=== PATIENT | female | born 1965 | race American Indian/Alaskan Native ===

== ENCOUNTER 2016-03-31 22:33 | Inpatient (IN) | payer OTHER ==
[2016-04-01] MEDS ORDERED: ONDANSETRON DISINTEGRATING 4 MG TAB PO PRN (00:54)
[2016-04-01] MEDS: NS 1,000 ML IV SCH ×2 (01:14→20:53)
[2016-04-01] MEDS: ACETAMINOPHEN 500 MG TAB PO PRN ×2 (01:15→09:16)
[2016-04-01] MEDS ORDERED: POLYETHYLENE GLYCOL 3350 17 GM PKT PO PRN ×2 (01:49→09:40)
--- NOTE | 2016-04-01 02:41 | PDGENHP ---
History and Physical - Chief Complaint Abdominal pain - History of Present Illness Patient is a 50-year-old female with no significant medical history who presented to the [place] ED complaining generalized malaise and chills. About 7 weeks ago patient underwent vaginal hysterectomy for removal of fibroid uterus. About 2 weeks after surgery patient had developed abdominal pain, came to [facility] ED was discovered to have postop hematoma formation. This was managed conservatively, patient's symptoms were treated she was discharged home. She reports that since that time she has been having continued bloody vaginal drainage, lower abdominal cramping and constipation/ straining with defecation. About 2 or 3 days ago she also noticed increase in urinary frequency, intermittently with symptoms of dysuria. On day of presentation she reports significant generalized fatigue and also rigors, which prompted her to go to the [facility] ED. [place] ED vital signs: T 38.6 C, HR 114, BP 169/104, O2 sat 93% RA. Labs were revealed no leukocytosis, elevated platelets and normal BMP. Lactic acid was elevated 2.8. UA revealed moderate leuk Estrace positive nitrites and 61-100 WBCs. Rapid Flu swab negative. Chest x-ray negative for any acute infiltrate. CT abdomen and pelvis was then obtained and revealed 6 x 5 x 3 cm fluid collection in the pelvic region adjacent to the bladder, bladder wall thickening and surrounding stranding. Blood and urine cultures were sent and she was started on broad-spectrum antibiotics. Dr. Joseph, the surgeon who performed her hysterectomy was called by the ED physician. Patient and Dr. Joseph both agreed transfer to the [facility] would be most appropriate given all of her prior care here. Patient was then transported to [facility] and admitted under the hospitalist service. ED Meds: NS x 2L, Tramadol 50 mg, Zosyn 3.375 g. History Information - Allergies/Home Medication List Allergies/Adverse Reactions: morphine Allergy (Intermediate, Verified 03/05/16 08:15) Itching Home Medications: Acetaminophen [Tylenol ES 500 mg (*)] 1,000 mg PO 0700,1300 02/19/16 [Last Taken 02/20/16 23:00] I have personally reviewed and updated: family history, medical history, social history, surgical history - Past Medical History Additional medical history: None - Surgical History Additional surgical history: multiple knee surgeries. ankle surgery x 1. 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 She lives with her in [place]. Review of Systems ROS: 10pt was reviewed & negative except for what was stated in HPI & below Physical Exam Temp Pulse Resp BP Pulse Ox 36.6 C 90 16 130/85 H 95 04/01/16 00:33 04/01/16 00:33 04/01/16 00:33 04/01/16 00:33 04/01/16 00:33 Constitutional: no apparent distress, appears nourished, not in pain Eyes: PERRL, anicteric sclera, EOMI Ears, Nose, Mouth, Throat: moist mucous membranes, hearing normal, ears appear normal, no oral mucosal ulcers Cardiovascular: regular rate and rhythym, no murmur, rub, or gallop, pulses symmetric bilaterally, No JVD, No edema Peripheral Pulses: 2+: dorsalis-pedis (R), dorsalis-pedis (L) Respiratory: no respiratory distress, no rales or rhonchi, clear to auscultation Gastrointestinal: normoactive bowel sounds, other (Suprapubic tenderness, fullness in the suprapubic area), No guarding, No rebound Genitourinary: other (Bladder tenderness) Skin: warm, normal color, no rashes or abrasions, no fluctuance, no induration, No mottled Musculoskeletal: full muscle strength, no muscle tenderness, normal joint ROM, no joint effusions Neurologic: AAOx3, sensation intact bilaterally, CN II-XII Intact, No weakness, No numbness Psychiatric: interacting appropriately, not anxious, not encephalopathic, thought process linear Lab Data & Imaging Review BMP: 140 / 3.6 / 105 / 21 / 11 / 0.86 < 94, Ca 8.7 CBC: 4.2 > 10.6 / 32.8 < 730 Lactic acid: 2.8 Urinalysis: moderate leukocyte esterase, positive nitrites, 61-200 WBC, 6-10 RBCs Rapid influenza A/B swab: negative Visualized and Interpreted Chest x-ray results: Yes Chest X-Ray results: no infiltrate, normal Visualized and Interpreted imaging results: Yes Interpretation: CT abd/pelvis: significant amount of stool throughout GI tract; pelvic fluid collection: [id number] in size, adjacent to bladder Assessment & Plan Assessment: Patient is a 50-year-old female with a history of recent vaginal hysterectomy, which has been complicated by abdominal hematoma formation, presents to the ED with increasing abdominal pain, fever and generalized fatigue. ED w/u reveals persistent pelvic hematoma, as well as UTI. Plan: # sepsis Pt with fever, tachycardia on presentation to [facility] ED, meeting SIRS criteria. Source of infection include urine (grossly positive UA) and possible pelvic abscess given persistent pelvic hematoma. BLood and urine cultures were sent in ED prior to initiating antibiotics, and she was started on broad spectrum coverage. Elevated lactic acid indicates severe sepsis, pt received appropriate 30cc/kg fluid bolus, and remained hemodynamically stable throughout her course. - f/u blood and urine cultures (from micro lab) - cont zosyn 3.375 g q6h for now, narrow as indicated by cultures - repeat Lactic acid - monitor cbc and fever curve # pelvic fluid collection First identified on 03/05, conservatively managed. Repeat CT abd/pelvis should be compared to prior to assess size and features of fluid. Will defer to PL[facility] S[facility]TER regarding need for surgical investigation. # constipation Pt reports constipation symptoms x [address] shows significant stool throughout colon. Will start standing bowel regimen and monitor. Pt denies nausea, vomiting and is tolerating PO intake. - senna/colace BID - miralax prn # dispo: admit to inpt service for > 2MN stay # gen: regular diet DVT ppx: SCDs Full code
[2016-04-01] MEDS: SENNOSIDES/DOCUSATE SODIUM TAB PO SCH ×3 (03:01→20:52)
[2016-04-01] MEDS: traMADol 50 MG TAB PO PRN ×4 (03:35→23:41)
[2016-04-01 05:43] LABS: % IMMATURE GRANULYOCYTES 0.7 % (0.0-1.1); ABSOLUTE IMMATURE GRANULOCYTES 0.08 10^3/uL (0.00-0.10); ADD DIFF? NO; ADD MORPH? NO; ADD SCAN? NO; ATYPICAL LYMPHOCYTE FLAG 10 (0-99); FRAGMENT RBC FLAG 0 (0-99); HEMATOCRIT 24.4 % (38.0-47.0); HEMOGLOBIN 8.1 g/dL (12.6-16.3); LEFT SHIFT FLG 50 (0-99); LIPEMIA HEMOLYSIS FLAG 80 (0-99); MEAN CELL HEMOGLOBIN 30.5 pg (27.9-34.1); MEAN CELL HEMOGLOBIN CONCENTR. 33.2 g/dL (32.4-36.7); MEAN CELL VOLUME 91.7 fL (81.5-99.8); MEAN PLATELET VOLUME 7.8 fL (8.7-11.7); PLATELET CLUMPS FLAG 0 (0-99); PLATELET COUNT 582 10^3/uL (150-400); RED BLOOD CELL COUNT 2.66 10^6/uL (4.18-5.33); RED CELL DISTRIBUTION WIDTH 13.5 % (11.5-15.2)
[2016-04-01 05:44] LABS: ALANINE AMINOTRANSFERASE 51 IU/L (9-52); ALBUMIN 2.7 g/dL (3.5-5.0); ALKALINE PHOSPHATASE 177 IU/L (38-126); ANION GAP 11 mEq/L (8-16); ASPARTATE AMINOTRANSFERASE 47 IU/L (14-46); BILIRUBIN,TOTAL 0.3 mg/dL (0.1-1.4); CALCIUM 7.9 mg/dL (8.5-10.4); CARBON DIOXIDE 23 mEq/l (22-31); CHLORIDE 110 mEq/L (97-110); CREATININE 0.6 mg/dL (0.6-1.0); GLOMERULAR FILTRATION RATE > 60; GLUCOSE 87 mg/dL (70-100); INR 1.13 (0.83-1.16); MAGNESIUM 1.8 mg/dL (1.6-2.3); POTASSIUM 4.1 mEq/L (3.5-5.2); PROTIME(PATIENT) 14.4 SEC (12.0-15.0); SODIUM 144 mEq/L (134-144); TOTAL PROTEIN 5.8 g/dL (6.3-8.2)
[2016-04-01 05:45] LABS: APTT 35.1 SEC (23.0-38.0)
[2016-04-01] MEDS: PIPERACILLIN/TAZO 3.375 GM/DEX 50 ML IV SCH ×4 (06:13→23:42)
[2016-04-01 09:37] LABS: % IMMATURE GRANULYOCYTES 0.7 % (0.0-1.1); ABSOLUTE IMMATURE GRANULOCYTES 0.07 10^3/uL (0.00-0.10); ADD DIFF? NO; ADD MORPH? NO; ADD SCAN? NO; ATYPICAL LYMPHOCYTE FLAG 10 (0-99); FRAGMENT RBC FLAG 0 (0-99); HEMATOCRIT 24.7 % (38.0-47.0); HEMOGLOBIN 8.3 g/dL (12.6-16.3); LEFT SHIFT FLG 20 (0-99); LIPEMIA HEMOLYSIS FLAG 80 (0-99); MEAN CELL HEMOGLOBIN 31.1 pg (27.9-34.1); MEAN CELL HEMOGLOBIN CONCENTR. 33.6 g/dL (32.4-36.7); MEAN CELL VOLUME 92.5 fL (81.5-99.8); MEAN PLATELET VOLUME 7.7 fL (8.7-11.7); PLATELET CLUMPS FLAG 0 (0-99); PLATELET COUNT 515 10^3/uL (150-400); RED BLOOD CELL COUNT 2.67 10^6/uL (4.18-5.33); RED CELL DISTRIBUTION WIDTH 13.6 % (11.5-15.2)
[2016-04-01] MEDS ORDERED: MAGNESIUM HYDROXIDE 30 ML UDCUP PO PRN (09:40)
[2016-04-01] MEDS ORDERED: HYDROmorphONE/DILAUDID 1 MG/ML SYR IVP PRN (09:40)
[2016-04-01] MEDS ORDERED: BISACODYL 10 MG SUPP PR PRN (09:40)
[2016-04-01] MEDS ORDERED: LACTULOSE 20 GM/30 ML UDCUP PO PRN (09:40)
--- NOTE | 2016-04-01 12:49 | GCON ---
[f rep st] CONSULTATION GYNECOLOGIC CONSULTATION DATE OF CONSULTATION: 04/01/2016 CHIEF COMPLAINT: Pelvic pressure and overall general malaise. HISTORY OF PRESENT ILLNESS: Patient is a 50-year-old G2, P2, who underwent uncomplicated vaginal hysterectomy on 02/21/2016. Her postop course was uneventful except for a small reaction to morphine from her spinal morphine. She then presented to the emergency room on 03/05/2016 with pelvic pressure, and CT scan showed a 6 cm vaginal cuff hematoma. Her pain was mild, and her blood count was stable, so she was felt to safely be managed expectantly, with the understanding that most of these resorb without complication. Patient was then seen in my office two other times. The pelvic cuff hematoma was felt to be stable on exam, and patient was feeling well until 3-4 days before presenting to [place] emergency room with pain, fever, chills, bladder pressure and overall feeling pretty sick. Evaluation included blood work that showed a white blood count of 4 and a hematocrit of 32. CT scan that showed persistent pelvic hematoma. Her vital signs showed a temp of 38.2, and she was tachycardic at 114, and blood pressure was very elevated at 170/104, and she had an elevated lactic acid. Patient was felt to be septic either from vaginal cuff hematoma or from other sources such as a urinary tract infection, and because she was postop, patient was transferred to [facility]. She was started on antibiotics at the [facility] and had blood cultures and urine cultures, antibiotics with Zosyn 3.375 g q.6 hours. Patient was admitted under hospitalist care. Today, states that she is feeling better but still has significant malaise. Pain is resolving quickly. She does not have much vaginal drainage, and is ambulating well. EXAM: VITAL SIGNS: Blood pressure is 120-130/80, pulse is 90, and temperature is 36.4. LUNGS: Clear to auscultation. COR: Regular rate and rhythm. ABDOMEN: Soft with positive bowel sounds, and above the pubic symphysis is a palpable firm mass that is slightly tender, it is not significantly fluctuant. PELVIC: Exam deferred, but scant discharge of the perineum. LABORATORY: White blood count this morning was 12 and now is 10, and hematocrit was 24. Pending at this point is comparison of previous CT scan from 03/05/2016 to 03/31/2016 at [facility], to evaluate if there is any change in size of the mass or any other changes. ASSESSMENT AND PLAN: Likely some form of sepsis with etiologies including vaginal cuff hematoma abscess most likely cause. She seems to be responding well to the antibiotics in that she is afebrile and her white count with repeat is normalizing at 10, and she is feeling slightly better. Plan at this point is awaiting radiology comparison and options for drainage. Recommend at this point that we give her 48 hours of being afebrile before attempting to drain this abscess, and this can either be done under ultrasound guidance in the operating room with Radiology or if Radiology feels they can drain it through ultrasound guidance themselves either abdominally or through the vagina. So plan for now is that patient can eat, and will get SCDs on her legs, and she has a tentative OR time at 9:15. Also ID consult will be done and also will check the blood cultures from [facility]. /[id number]/MODL MTDD
[2016-04-01] MEDS: ONDANSETRON 4 MG/2 ML VIAL IVP PRN ×2 (14:32→20:52)
--- NOTE | 2016-04-01 15:34 | GCON ---
[f rep st] CONSULTATION INFECTIOUS DISEASE CONSULTATION. DATE OF CONSULTATION: 04/01/2016 REFERRING PHYSICIAN: Cristina Bowser MD REASON FOR CONSULTATION: Pelvic abscess, for further evaluation and opinion. CHIEF COMPLAINT: Lower abdominal pain. HISTORY OF PRESENTING ILLNESS: This is a 50-year-old female with a history of fibroids, who underwent a vaginal hysterectomy on February 21, 2016. She stayed 1-1/2 days in the hospital. During that time, she had a bad reaction to morphine, where her blood pressure dropped, and it took, according to the patient, around 20 hours to resuscitate or improve her blood pressure. About 2 weeks after surgery, she started to have increasing abdominal pain. Came to the [facility] ED and had a CT scan at that time. She was found to have a postop hematoma. She has been followed by Dr. 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 She has been on no antibiotics during this time. She has had intermittent increases in her abdominal pain. She has also had bloody vaginal discharge. Also, about 5 weeks ago, at the time when she had intense abdominal pain, she was having pretty profuse diarrhea as well. Over the past couple days, she has had some increasing pressure in the lower abdomen suprapubic region. She describes some intermittent dysuria, but yesterday, she spiked to 38.6, was having shaking chills, and her blood pressure at [place] was noted to be at 169/104 with a heart rate of 114. She had blood cultures x2 sets drawn. She had a venous lactic acid which was elevated at 2.8. She showed pyuria in her urine. She had a followup CAT scan which showed a 6 x 5 x 3 cm fluid collection in the pelvic region adjacent to the bladder, which looked suspicious for an abscess. She was transferred here to [facility] for ongoing care. She was started on Zosyn yesterday. Today, she is feeling a little bit better. She continues to have lower abdominal pain. Her temperatures have improved. Her heart rate has also improved. Her blood pressure also has improved as well. Her white blood cell count was 12 when she had blood drawn here earlier this morning. It is down to 10.3 now. She has a thrombocytosis and a left shift. Infectious Disease is now consulted for further evaluation and opinion on above. REVIEW OF SYSTEMS: GENERAL: She has had fevers and shaking chills over the past 24 hours. This is improved somewhat now. HEAD: Has a mild headache. EYES: No change in vision. ENT: No sore throat, difficulty swallowing, ear pain, or ear drainage. CARDIOVASCULAR: Denies any chest pain or rapid heartbeat. RESPIRATORY: Denies any shortness of breath, cough, or sputum production. ABDOMEN. Mild nausea. No vomiting. Lower abdominal pain. No diarrhea. : Intermittent dysuria, but she states she voids frequently as well ever since the hematoma was found, over the past 5 weeks. MUSCULOSKELETAL : Denies any joint pains or muscle aches. SKIN: No other rashes. Rest of the 10-point review of systems essentially negative except for above. PAST MEDICAL HISTORY: Fibroids. PAST SURGICAL HISTORY: Vaginal hysterectomy on 02/21/2016, right ankle surgery , multiple left knee surgeries for ACL repair. ALLERGIES: Morphine. SOCIAL HISTORY: She is a nonsmoker. She drinks alcohol occasionally. No illicit drugs. She used marijuana occasionally. She works in [employer] at [place] and, thus, travels abroad frequently for that. She lives with her in [place]. She has 2 grown children. FAMILY HISTORY: Significant for high blood pressure and diabetes. PHYSICAL EXAMINATION: VITAL SIGNS: Temperature current 36.7, pulse is 84, blood pressure of 129/83, heart rate is 84. GENERAL: Patient is sitting up in bed, in no acute respiratory distress. Awake, alert, and oriented x3. HEENT: Head is normocephalic, atraumatic. There is no conjunctival injection or petechiae noted. Oropharynx is clear. There is no posterior pharyngeal erythema or thrush. CARDIOVASCULAR: S1, S2. Regular rate and rhythm. No murmurs appreciated. RESPIRATORY: Clear to auscultate bilaterally. No rhonchi or rales appreciated. ABDOMEN: Positive bowel sounds in all 4 quadrants. Soft, nondistended. She has some pain in the suprapubic and lower pelvic region on palpation with some induration appreciated. EXTREMITIES: No lower extremity edema. MUSCULOSKELETAL: No obvious joint effusions or pain on palpation of the joints. SKIN: No obvious rashes. LABS: White blood cell count is 10.3, hemoglobin 8.3, platelets are 515. neutrophil count is 83%. Coagulation: INR 1.1. Venous lactic acid repeat is 0.6. Chemistries: Sodium 144, potassium 4.1, chloride is 110, bicarb is 23, BUN is 8, creatinine 0.6, AST 47, ALT 51, total bilirubin 0.3, alk phos is 177. Blood cultures, 2 sets done at [place], are pending. Urine culture pending. ASSESSMENT: 1. Postop fluid collection/hematoma, likely abscess versus infected hematoma. 1. Urinary tract infection PLAN: Patient is currently on broad-spectrum antimicrobials with Zosyn which we will continue for now. Await culture results that were done at [facility]. Would recommend that she have an aspiration by Interventional Radiology from a diagnostic standpoint to evaluate further for cultures as well as for partial therapeutic response as well. She may eventually have to go for a formal washout. The above was explained to the patient in detail. The rationale and importance for early diagnosis was explained. The order is already placed for Interventional Radiology to aspirate the abscess and will await that procedure to be done. Await culture data from that procedure to help tailor down her antimicrobials, as she is currently on a broad-spectrum antimicrobial every 6 hours. Thus, culture data will be helpful in further management. Care was coordinated with the hospitalist team. Patient and the patient's family had many questions which I answered satisfactorily and in detail. I reviewed her CT abdomen/pelvis images done at [facility] personally with radiology, Dr. Barrett. I thank you very much for allowing me this opportunity to care for your patient in consultation. /[id number]/MODL MTDD
--- NOTE | 2016-04-01 15:40 | HOSPPROG ---
Hospitalist Progress Note Assessment/Plan: * Sepsis - suspect infected pelvic hematoma -cultures sent at [facility] prior to abx and transfer to [facility] -IV Zosyn -ID consulted - d/w Dr. Bryson -pelvic hematoma needs drainage - IR vs. surgical with Dr. Joseph * s/p vaginal hysterectomy for fibroids * Possible UTI - urine culture pending * ABL anemia - stable * Constipation - bowel protocol Subjective: Lots of pain at hematoma. Frustrated and tearful Objective: Vital Signs Temp Pulse Resp BP Pulse Ox 36.7 C 84 16 129/83 H 95 04/01/16 12:00 04/01/16 12:00 04/01/16 12:00 04/01/16 12:00 04/01/16 12:00 Laboratory Results 04/01/16 09:30 04/01/16 05:09 03/31/16 04/01/16 04/02/16 05:59 05:59 05:59 Intake Total 500 Output Total 120 Balance 500 -120 PT 14.4 SEC (12.0-15.0) 04/01/16 05:09 INR 1.13 (0.83-1.16) 04/01/16 05:09 - Physical Exam Constitutional: no apparent distress, appears nourished, not in pain Cardiovascular: regular rate and rhythym, no murmur, rub, or gallop Respiratory: no respiratory distress, no rales or rhonchi, clear to auscultation Gastrointestinal: normoactive bowel sounds, soft, non-tender abdomen, other ( palpable hematoma at midline pelvis) Skin: no rashes or abrasions, no fluctuance, no induration Neurologic: AAOx3, sensation intact bilaterally Psychiatric: interacting appropriately, not anxious, not encephalopathic, thought process linear ICD10 Worksheet Patient Problems: Problems Problem Status Diagnosed Intramural leiomyoma of uterus Acute Other chronic pain Acute
[2016-04-01] MEDS: ACETAMINOPHEN 500 MG TAB PO SCH (20:52)
[2016-04-02 05:47] LABS: % IMMATURE GRANULYOCYTES 0.6 % (0.0-1.1); ABSOLUTE IMMATURE GRANULOCYTES 0.05 10^3/uL (0.00-0.10); ADD DIFF? NO; ADD MORPH? NO; ADD SCAN? NO; ANION GAP 8 mEq/L (8-16); ATYPICAL LYMPHOCYTE FLAG 20 (0-99); CARBON DIOXIDE 26 mEq/l (22-31); CHLORIDE 108 mEq/L (97-110); CREATININE 0.6 mg/dL (0.6-1.0); FRAGMENT RBC FLAG 0 (0-99); GLOMERULAR FILTRATION RATE > 60; GLUCOSE 81 mg/dL (70-100); HEMATOCRIT 25.2 % (38.0-47.0); LEFT SHIFT FLG 40 (0-99); LIPEMIA HEMOLYSIS FLAG 80 (0-99); MEAN CELL HEMOGLOBIN 30.4 pg (27.9-34.1); MEAN CELL HEMOGLOBIN CONCENTR. 31.7 g/dL (32.4-36.7); MEAN CELL VOLUME 95.8 fL (81.5-99.8); MEAN PLATELET VOLUME 7.9 fL (8.7-11.7); PLATELET CLUMPS FLAG 0 (0-99); PLATELET COUNT 540 10^3/uL (150-400); RED BLOOD CELL COUNT 2.63 10^6/uL (4.18-5.33); RED CELL DISTRIBUTION WIDTH 13.7 % (11.5-15.2); SODIUM 142 mEq/L (134-144)
[2016-04-02 05:50] LABS: INR 1.07 (0.83-1.16); PROTIME(PATIENT) 13.8 SEC (12.0-15.0)
[2016-04-02] MEDS: PIPERACILLIN/TAZO 3.375 GM/DEX 50 ML IV SCH ×4 (06:09→23:29)
[2016-04-02] MEDS: ONDANSETRON 4 MG/2 ML VIAL IVP PRN ×2 (06:09→10:08)
[2016-04-02] MEDS: NS 1,000 ML IV SCH ×2 (06:10→17:27)
[2016-04-02] MEDS: traMADol 50 MG TAB PO PRN (07:21)
--- NOTE | 2016-04-02 08:08 | CT ---
Outside Radiology consultation dated April 01, 2016 The below reported case was submitted to PACS by Dr. Ching Joseph. Dr. Joseph requested this stud y from [facility] to be compared to the CT [facility] Indication: Elevated white blood cell count. Suspected infection. Previous hysterectomy. Technique: 5 mm thick slices were obtained through the abdomen pelvis. The volume and type of intrave nous contrast utilized is not available for this reporting. Comparison: CT of the abdomen and pelvis [facility] dated March 05, 2016. Findings: The hematoma along the anterior dome of the urinary bladder (between the rectus muscle and dome bladder) has undergone liquefication. The 6.5 x 2.1 cm rim-enhancing fluid collection is best de monstrated are image 72 of series 2. Regional edema and mesenteric stranding in the low abdomen and p natalee is similar to March 05. The majority of the fluid collection in the central pelvis, at the apex the vaginal cuff, has resolve d. A 1.3 x 1.7 cm locule in the right hemipelvis along the sigmoid contiguous with the right ovary is evident on image 64 of series 2. Presacral edema and stranding is unchanged. The sigmoid colon and loops of small bowel in the pelvis have mild wall thickening. Small and large bowel are otherwise normal caliber. No evidence of obstruc tion or adynamic ileus. The appendix is within normal limit and partially obscured by regional strand ing. Both ovaries are minimally enlarged and similar to March 05. The urinary bladder is normal with the exception of reactive thickening along the anterior dome contiguous with the fluid collection. The liver, spleen, pancreas, gallbladder, and adrenal glands are normal. Minimal left hydroureteronep hrosis is new since 3 weeks prior and is likely secondary to inflammation in the pelvis. No nephrolit hiasis or ureteral calculi. No CT evidence of pyelonephritis or perinephric fluid collection. A right posterolateral disk herniation (protrusion on the right at L2-L3) resulting in moderate cente r canal and right ventrolateral recess narrowing is slightly more conspicuous than on the prior study . No bone lesion or paraspinal abscess. The lung bases are clear. Impression: 1. Evolving seroma versus superinfected seroma anterior to the urinary bladder with associated region al inflammation in the pelvis. If desired, the collection would be amenable to CT-guided aspiration v ersus drain placement. 2. Resolved complex fluid collection previously the apex of the vaginal cuff. 3. 1.7 cm locule in the right hemipelvis is likely ovarian follicle rather than residual fluid collec tion. 4. Regional pelvic inflammation results in minimal left hydronephrosis and inflammatory wall thickeni ng of the rectosigmoid, loops of ileum, and anterior bladder wall. Comment: The case was discussed with Dr. Ching Joseph on April 01, 2016.
[2016-04-02] MEDS: CETIRIZINE 10 MG TAB PO SCH (08:46)
[2016-04-02] MEDS: ACETAMINOPHEN 500 MG TAB PO SCH ×2 (08:46→20:42)
[2016-04-02] MEDS: SENNOSIDES/DOCUSATE SODIUM TAB PO SCH ×2 (08:48→20:42)
--- NOTE | 2016-04-02 09:26 | PCMIDPN ---
Assessment/Plan: Assessment/Plan: 1. Post op pelvic hematoma- infected hematoma vs abscess: - Reviewed Ct images with radiology last evening. Definite change in character compared to previous Ct done here several weeks ago. -For IR aspiratoin later today, for diagnostic and culture data -Continue zosyn for now -blood cx from [facility] ngtd -overall labs improved. 2. E. coli UTI: - Awaiting susceptibilities. Cx results from [facility] via [facility]. MEds zosyn 3.375gm q6- Subjective: Afebrile. FEeling much better today. Less overall abdominal pain, suprapubic pain and dysuria. no diarrhea. no shortness of breath. Objective: Vital Signs Temp Pulse Resp BP Pulse Ox 36.8 C 74 18 137/97 H 94 04/02/16 07:50 04/02/16 07:50 04/02/16 07:50 04/02/16 07:50 04/02/16 07:50 Laboratory Results 04/02/16 05:00 04/02/16 05:00 04/01/16 04/02/16 04/03/16 05:59 05:59 05:59 Intake Total 500 1700 Output Total 120 Balance 500 1580 - Physical Exam General Appearance: alert, no apparent distress Respiratory: lungs clear Cardiac/Chest: regular rate, rhythm, No systolic murmur Extremities: No swelling Abdomen: normal bowel sounds, soft, other (tenderness in suprapubic region. ), No distended Skin: No erythema ICD10 Worksheet Patient Problems: Problems Problem Status Diagnosed Intramural leiomyoma of uterus Acute Other chronic pain Acute
[2016-04-02] MEDS ORDERED: PROMETHAZINE HCL 25 MG/ML VIAL IVP PRN (10:49)
[2016-04-02] MEDS ORDERED: MIDAZOLAM 2 MG/2 ML VIAL ONE (11:40)
[2016-04-02] MEDS ORDERED: fentaNYL 100 MCG/2 ML INJ ONE (11:41)
--- NOTE | 2016-04-02 13:17 | HOSPPROG ---
Hospitalist Progress Note Assessment/Plan: * Sepsis - suspect infected pelvic seroma -cultures sent at [facility] prior to abx and transfer to [facility] -IV Zosyn -drainage in IR today * s/p vaginal hysterectomy for fibroids * Possible UTI - urine culture pending * ABL anemia - stable * Constipation - bowel protocol Subjective: no new complaints Objective: Vital Signs Temp Pulse Resp BP Pulse Ox 36.8 C 74 18 137/97 H 94 04/02/16 07:50 04/02/16 07:50 04/02/16 07:50 04/02/16 07:50 04/02/16 07:50 Laboratory Results 04/02/16 05:00 04/02/16 05:00 04/01/16 04/02/16 04/03/16 05:59 05:59 05:59 Intake Total 500 1700 Output Total 120 Balance 500 1580 PT 13.8 SEC (12.0-15.0) 04/02/16 05:00 INR 1.07 (0.83-1.16) 04/02/16 05:00 - Physical Exam Constitutional: no apparent distress, appears nourished, not in pain Cardiovascular: regular rate and rhythym, no murmur, rub, or gallop Respiratory: no respiratory distress, no rales or rhonchi, clear to auscultation Gastrointestinal: normoactive bowel sounds, soft, non-tender abdomen, no palpable masses Skin: no rashes or abrasions, no fluctuance, no induration Neurologic: AAOx3, sensation intact bilaterally Psychiatric: interacting appropriately, not anxious, not encephalopathic, thought process linear ICD10 Worksheet Patient Problems: Problems Problem Status Diagnosed Intramural leiomyoma of uterus Acute Other chronic pain Acute
--- NOTE | 2016-04-02 14:52 | CT ---
CT-Guided Abscess Drainage 1227 hours History: Possible pelvic abscess. Crosscutting Measure #226: Current tobacco user: no. Technique: Witnessed Consent: Witnessed informed consent was obtained after the risks, benefits, and alternativ es of CT-guided abscess drainage were explained to the patient and all questions were answered. The abscess within the anterior pelvis adjacent to the bladder was localized with CT imaging. Conscio us sedation was utilized with a total of 1.5 mg of Versed and 75 mcg of fentanyl over 30 minutes (123 5-1305 hours). Following local anesthesia with 1% lidocaine, a 18-gauge Chiba needle was advanced wit h CT guidance to the abscess within the anterior pelvis. Following confirmation of good position of t he needle tip within the collection, an Amplatz stiff wire was advanced through the needle and curled within the abscess cavity. Following confirmation of good position of the wire, the needle was excha nged for an 8-Sami drainage catheter that was then advanced into the abscess cavity. The pigtail po rtion of the catheter was then formed and locked in place. A total of 20 mL of yellowish cloudy purul ent foul-smelling fluid was aspirated from the collection. The collection was then irrigated with sma ll aliquots of normal saline until clear. The catheter was then fixed to the skin surface. The patien t tolerated the procedure well. No immediate complications occurred. Dose reduction techniques were u tilized. On images obtained the collection originally measured 6.9 x 2.4 cm in transverse and AP dimensions. O nly a small amount of residual fluid remained following aspiration and irrigation of the cavity. Impression: Successful CT-guided abscess drainage and fluid submitted to the laboratory for Gram stai n along with culture and sensitivity.
[2016-04-02] MEDS: KETOROLAC 15 MG/1 ML SDV IVP SCH ×2 (15:17→20:41)
[2016-04-03] MEDS: KETOROLAC 15 MG/1 ML SDV IVP SCH ×4 (03:57→21:07)
[2016-04-03] MEDS: PIPERACILLIN/TAZO 3.375 GM/DEX 50 ML IV SCH ×4 (05:11→23:34)
[2016-04-03] MEDS: ACETAMINOPHEN 500 MG TAB PO SCH (09:11)
[2016-04-03] MEDS: CETIRIZINE 10 MG TAB PO SCH (09:12)
[2016-04-03] MEDS: SENNOSIDES/DOCUSATE SODIUM TAB PO SCH ×2 (09:12→19:10)
[2016-04-03] MEDS ORDERED: ACETAMINOPHEN 500 MG TAB PO PRN (09:29)
--- NOTE | 2016-04-03 14:52 | HOSPPROG ---
Hospitalist Progress Note Assessment/Plan: * Sepsis - due to pelvic abscess s/p vaginal hysterectomy -BC sent at [facility] prior to transfer -IV Zosyn * Pelvic abscess s/p CT guided drainage -still large amount output from MELINA -culture - GNR * s/p vaginal hysterectomy for fibroids * Possible UTI - urine culture pending ([facility]) * ABL anemia - stable * Constipation - bowel protocol Subjective: Feels so much better since drainage procedure Objective: Vital Signs Temp Pulse Resp BP Pulse Ox 37.1 C 73 16 161/98 H 94 04/03/16 12:00 04/03/16 12:00 04/03/16 12:00 04/03/16 12:00 04/03/16 12:00 Microbiology 04/02/16 13:00 Gram Stain - Final Pelvis - Aspirate Laboratory Results 04/02/16 05:00 04/02/16 05:00 04/02/16 04/03/16 04/04/16 05:59 05:59 05:59 Intake Total 1700 2144 Output Total 120 18 Balance 1580 2126 PT 13.8 SEC (12.0-15.0) 04/02/16 05:00 INR 1.07 (0.83-1.16) 04/02/16 05:00 - Physical Exam Constitutional: no apparent distress, appears nourished, not in pain Cardiovascular: regular rate and rhythym, no murmur, rub, or gallop Respiratory: no respiratory distress, no rales or rhonchi, clear to auscultation Gastrointestinal: normoactive bowel sounds, soft, non-tender abdomen, no palpable masses Skin: no rashes or abrasions, no fluctuance, no induration Neurologic: AAOx3, sensation intact bilaterally Psychiatric: interacting appropriately, not anxious, not encephalopathic, thought process linear ICD10 Worksheet Patient Problems: Problems Problem Status Diagnosed Intramural leiomyoma of uterus Acute Other chronic pain Acute
--- NOTE | 2016-04-03 16:53 | PCMIDPN ---
Assessment/Plan: Assessment/Plan: * Pelvic abscess s/p hysterectomy: Status post percutaneous drainage yesterday with Gram stain showing 2+ Gram-positive cocci. Culture today showing growth of lactose fermenting gram-negative radu and possibly gram variable radu. Patient feels significantly improved post drainage. Will continue Zosyn pending additional culture data. * UTI: Urine culture from [facility] reviewed showing growth of greater than 100,000 E coli which is stafford susceptible. Urinary symptoms now resolved with antibiotics. 04/03/16 16:49 Subjective: Patient status post drainage of pelvic abscess by interventional Radiology yesterday. Feels significantly improved today without abdominal pain other than irritation around drain site. Dysuria and frequency have resolved. Objective: Vital Signs Temp Pulse Resp BP Pulse Ox 36.6 C 71 16 148/88 H 96 04/03/16 15:59 04/03/16 15:59 04/03/16 15:59 04/03/16 15:59 04/03/16 15:59 Microbiology 04/02/16 13:00 Gram Stain - Final Pelvis - Aspirate Laboratory Results 04/02/16 05:00 04/02/16 05:00 04/02/16 04/03/16 04/04/16 05:59 05:59 05:59 Intake Total 1700 2144 Output Total 120 18 Balance 1580 2126 Zosyn # 3 Blood cultures at [facility] no growth to date Urine culture at [facility] with greater than 100,000 E coli which is stafford susceptible Pelvic abscess with 2+ GPC and growth of lactose fermenting gram-negative radu - Physical Exam General Appearance: alert, no apparent distress EENT: pharynx normal, No scleral icterus Respiratory: lungs clear, No respiratory distress Cardiac/Chest: regular rate, rhythm, No systolic murmur Extremities: No inflammation Abdomen: non-tender, other (MELINA drain with serosanguineous output), No distended Skin: No rash ICD10 Worksheet Patient Problems: Problems Problem Status Diagnosed Intramural leiomyoma of uterus Acute Other chronic pain Acute
--- NOTE | 2016-04-03 17:09 | SOAPPROG ---
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 and no bleeding 04/03/16 16:59 04/03/16 17:11 Subjective: feeling much better, WHITE gone Nausea gone and ambulating well Objective: Vital Signs Temp Pulse Resp BP Pulse Ox 36.6 C 71 16 148/88 H 96 04/03/16 15:59 04/03/16 15:59 04/03/16 15:59 04/03/16 15:59 04/03/16 15:59 Microbiology 04/02/16 13:00 Gram Stain - Final Pelvis - Aspirate Laboratory Results 04/02/16 05:00 04/02/16 05:00 04/02/16 04/03/16 04/04/16 05:59 05:59 05:59 Intake Total 1700 2144 Output Total 120 18 Balance 1580 2126 PT 13.8 SEC (12.0-15.0) 04/02/16 05:00 INR 1.07 (0.83-1.16) 04/02/16 05:00 abd soft pos BS drain without erythema ICD10 Worksheet Patient Problems: Problems Problem Status Diagnosed Intramural leiomyoma of uterus Acute Other chronic pain Acute
[2016-04-03] MEDS: traMADol 50 MG TAB PO PRN (21:11)
[2016-04-04] MEDS: traMADol 50 MG TAB PO PRN ×3 (02:10→18:24)
[2016-04-04] MEDS: KETOROLAC 15 MG/1 ML SDV IVP SCH ×4 (03:20→21:28)
[2016-04-04] MEDS: PIPERACILLIN/TAZO 3.375 GM/DEX 50 ML IV SCH ×2 (05:00→12:22)
[2016-04-04 05:29] LABS: % IMMATURE GRANULYOCYTES 0.8 % (0.0-1.1); ABSOLUTE IMMATURE GRANULOCYTES 0.05 10^3/uL (0.00-0.10); ADD DIFF? NO; ADD MORPH? NO; ADD SCAN? NO; ATYPICAL LYMPHOCYTE FLAG 20 (0-99); FRAGMENT RBC FLAG 0 (0-99); HEMATOCRIT 24.9 % (38.0-47.0); HEMOGLOBIN 8.3 g/dL (12.6-16.3); LEFT SHIFT FLG 0 (0-99); LIPEMIA HEMOLYSIS FLAG 80 (0-99); MEAN CELL HEMOGLOBIN 30.6 pg (27.9-34.1); MEAN CELL HEMOGLOBIN CONCENTR. 33.3 g/dL (32.4-36.7); MEAN CELL VOLUME 91.9 fL (81.5-99.8); MEAN PLATELET VOLUME 7.6 fL (8.7-11.7); PLATELET CLUMPS FLAG 0 (0-99); PLATELET COUNT 521 10^3/uL (150-400); RED BLOOD CELL COUNT 2.71 10^6/uL (4.18-5.33); RED CELL DISTRIBUTION WIDTH 13.7 % (11.5-15.2)
[2016-04-04] MEDS: SENNOSIDES/DOCUSATE SODIUM TAB PO SCH ×2 (07:38→21:29)
[2016-04-04] MEDS: CETIRIZINE 10 MG TAB PO SCH (07:40)
--- NOTE | 2016-04-04 12:36 | HOSPPROG ---
Hospitalist Progress Note Assessment/Plan: # sepsis d/t pelvic abscess s/p vaginal hysterectomy - BCx from [facility] # pelvic abscess s/p CT guided drainage; MELINA drain in place - e. coli in abscess - IV zosyn # vaginal hysterectomy for fibroids # UTI - zosyn # ABLA - stable # diarrhea - hold bowel protocol # htn - monitor for now without treatment ## chart reviewed abscess drainage note reviewed Subjective: no significant abd pain Objective: Vital Signs Temp Pulse Resp BP Pulse Ox 36.7 C 70 16 152/90 H 94 04/04/16 07:38 04/04/16 07:38 04/04/16 04:00 04/04/16 07:38 04/04/16 07:38 Microbiology 04/02/16 13:00 Gram Stain - Final Pelvis - Aspirate Laboratory Results 04/04/16 05:21 04/02/16 05:00 04/03/16 04/04/16 04/05/16 05:59 05:59 05:59 Intake Total 2144 500 Output Total 18 8 Balance 2126 492 PT 13.8 SEC (12.0-15.0) 04/02/16 05:00 INR 1.07 (0.83-1.16) 04/02/16 05:00 - Physical Exam Constitutional: no apparent distress, appears nourished Cardiovascular: regular rate and rhythym, no murmur, rub, or gallop Respiratory: no respiratory distress, no rales or rhonchi, clear to auscultation Gastrointestinal: normoactive bowel sounds, soft, non-tender abdomen, other (MELINA drain in place) ICD10 Worksheet Patient Problems: Problems Problem Status Diagnosed Intramural leiomyoma of uterus Acute Other chronic pain Acute
--- NOTE | 2016-04-04 15:18 | PCMIDPN ---
Assessment/Plan: Assessment/Plan: * Pelvic abscess s/p hysterectomy: Status post percutaneous drainage yesterday with Gram stain showing 2+ Gram-positive cocci. Culture today showing growth of E. coli and anaerobic arturo; no enterococci present to date. Will change Zosyn to Unasyn based on susceptibility profile of E. coli to achieve more narrow spectrum. E coli is fluoroquinolone susceptible so long-term therapy likely can be achieved with oral quinolone and metronidazole. If drain output remains low, likely will repeat CT scan with drain study tomorrow to see if drain could be removed and assess adequacy of drainage of pelvic abscess. * UTI: Symptoms resolved and covered by above antibiotic therapy. 04/04/16 15:15 Subjective: Abdominal pain overnight but now resolved. Overall still feels significantly improved. Objective: Vital Signs Temp Pulse Resp BP Pulse Ox 36.7 C 70 16 152/90 H 94 04/04/16 07:38 04/04/16 07:38 04/04/16 04:00 04/04/16 07:38 04/04/16 07:38 Microbiology 04/02/16 13:00 Gram Stain - Final Pelvis - Aspirate Laboratory Results 04/04/16 05:21 04/02/16 05:00 04/03/16 04/04/16 04/05/16 05:59 05:59 05:59 Intake Total 2144 500 Output Total 18 8 5 Balance 2126 492 -5 Zosyn # 4 Pelvic abscess culture with growth of E coli with broad susceptibility and anaerobic arturo - Physical Exam General Appearance: alert, no apparent distress EENT: pharynx normal, No scleral icterus Cardiac/Chest: regular rate, rhythm, No systolic murmur Abdomen: non-tender, other (Minimal serosanguineous output in MELINA drain), No distended Skin: No rash ICD10 Worksheet Patient Problems: Problems Problem Status Diagnosed Intramural leiomyoma of uterus Acute Other chronic pain Acute
[2016-04-04] MEDS: AMPICILLIN/SULBACTAM 3 GM in NS 100 ML IV SCH (17:30)
[2016-04-05] MEDS ORDERED: diphenhydrAMINE 25 MG CAP PO ONE (00:11)
[2016-04-05] MEDS: AMPICILLIN/SULBACTAM 3 GM in NS 100 ML IV SCH ×4 (00:14→18:17)
[2016-04-05] MEDS: KETOROLAC 15 MG/1 ML SDV IVP SCH ×4 (03:47→22:16)
[2016-04-05] MEDS: SENNOSIDES/DOCUSATE SODIUM TAB PO SCH ×2 (07:40→22:13)
[2016-04-05] MEDS: CETIRIZINE 10 MG TAB PO SCH (09:46)
[2016-04-05] MEDS ORDERED: IOPAMIDOL (ISOVUE-300) 50 ML VIAL IV ONE (09:55)
--- NOTE | 2016-04-05 10:38 | PCMIDPN ---
Assessment/Plan: 1. Pelvic abscess status post hysterectomy/culture with E coli: Patient is down in CT now. Hopefully drain can be pulled today, with discharge tomorrow on levofloxacin and metronidazole. Would treat for 2 weeks after incision and drainage (April 02), stop date April 16. Patient will need to be counseled tomorrow about potential side effects associated with levofloxacin including neuropathy, C difficile colitis, and tendinopathy and the need to avoid alcohol with metronidazole. Patient has follow-up appointment with Dr. Froylan Morataya April 17 at 9:00 a.m. and will need to be informed of this. 04/05/16 10:39 Subjective: The patient is down in CT presently. Objective: Vital Signs Unasyn 3 g IV q.6 hours day 1. (antibiotics day 5) Afebrile Temp Pulse Resp BP Pulse Ox 37.0 C 65 14 132/80 H 93 04/05/16 07:54 04/05/16 07:54 04/05/16 07:54 04/05/16 07:54 04/05/16 07:54 Microbiology 04/02/16 13:00 Gram Stain - Final Pelvis - Aspirate Laboratory Results 04/04/16 05:21 04/02/16 05:00 04/04/16 04/05/16 04/06/16 05:59 05:59 05:59 Intake Total 500 Output Total 8 5 Balance 492 -5 Abscess culture with E coli ICD10 Worksheet Patient Problems: Problems Problem Status Diagnosed Intramural leiomyoma of uterus Acute Other chronic pain Acute
--- NOTE | 2016-04-05 12:47 | CT ---
CT Pelvis With IV Contrast dated April 05, 2016 Indication: Follow up pelvic abscess. Technique: 5 mm thick helically acquired slices were obtained through the pelvis following uneventful intravenous administration of 80 mL of Isovue-370. Dose reduction techniques were utilized. Comparison: CT abdomen and pelvis dated March 31, 2016 and percutaneous drain placement dated 2016. Findings: The drain remains well-positioned in the suprapubic position along the anterosuperior aspec t of the urinary bladder. There is no residual fluid collection around the well-positioned drain. New bilateral ovarian cysts have developed since 3 days prior. The cyst on the right measures 4 x 3 c m. The cyst on the left measures 2.3 x 3.5 cm. No residual fluid collection of the apex of vaginal cuff. Minimal presacral edema is unchanged. No seun ne lesions. The appendix and bowel pattern are normal. Impression: 1. No residual suprapubic collection around the well-positioned percutaneous drain. 2. Small bilateral ovarian cyst. Comment: I discussed the results with Dr. Sirisha Greenberg. She requests removal of the percutaneous jo ann in. Subsequently, the percutaneous drain was removed over a sterile 0.[address] the CT suit e. A Steri-Strip and sterile dressing were placed over the skin entrance site. The patient tolerated the drain removal well.
--- NOTE | 2016-04-05 13:39 | HOSPPROG ---
Hospitalist Progress Note Assessment/Plan: # sepsis d/t pelvic abscess s/p vaginal hysterectomy # pelvic abscess s/p CT guided drainage - repeat CT today with no residual abscess; MELINA drain removed - e. coli in abscess - IV Unasyn; plan to DC on Levaquin and Flagyl # vaginal hysterectomy for fibroids # UTI - unasyn # ABLA - stable # diarrhea - hold bowel protocol # htn - monitor for now without treatment # dispo - likely discharge tomorrow on oral antibiotics ## Pelvic CT reviewed Chart reviewed including Dr. Greenberg's note Objective: Vital Signs Temp Pulse Resp BP Pulse Ox 37.0 C 65 14 132/80 H 93 04/05/16 07:54 04/05/16 07:54 04/05/16 07:54 04/05/16 07:54 04/05/16 07:54 Microbiology 04/02/16 13:00 Gram Stain - Final Pelvis - Aspirate Laboratory Results 04/04/16 05:21 04/02/16 05:00 04/04/16 04/05/16 04/06/16 05:59 05:59 05:59 Intake Total 500 Output Total 8 5 Balance 492 -5 PT 13.8 SEC (12.0-15.0) 04/02/16 05:00 INR 1.07 (0.83-1.16) 04/02/16 05:00 ICD10 Worksheet Patient Problems: Problems Problem Status Diagnosed Intramural leiomyoma of uterus Acute Other chronic pain Acute
--- NOTE | 2016-04-05 17:27 | SOAPPROG ---
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 intake 04/03/16 16:59 04/03/16 17:11 04/05/16 17:23 Subjective: feeling much better , no pain and diarrhea under control, wants to go home Objective: Vital Signs Temp Pulse Resp BP Pulse Ox 37.0 C 67 15 132/80 H 94 04/05/16 07:54 04/05/16 17:12 04/05/16 17:12 04/05/16 07:54 04/05/16 17:12 Microbiology 04/02/16 13:00 Gram Stain - Final Pelvis - Aspirate Laboratory Results 04/04/16 05:21 04/02/16 05:00 04/04/16 04/05/16 04/06/16 05:59 05:59 05:59 Intake Total 500 Output Total 8 5 Balance 492 -5 PT 13.8 SEC (12.0-15.0) 04/02/16 05:00 INR 1.07 (0.83-1.16) 04/02/16 05:00 abd soft, drain site not oozing or tender ICD10 Worksheet Patient Problems: Problems Problem Status Diagnosed Intramural leiomyoma of uterus Acute Other chronic pain Acute
[2016-04-05 23:22] VITALS: RESP 16
[2016-04-06] MEDS: AMPICILLIN/SULBACTAM 3 GM in NS 100 ML IV SCH ×2 (00:24→05:36)
[2016-04-06] MEDS: KETOROLAC 15 MG/1 ML SDV IVP SCH ×2 (04:03→10:13)
[2016-04-06 08:25] VITALS: BP 144/88; PULSE 72; TEMP 97.8; O2SAT 95
[2016-04-06] MEDS: CETIRIZINE 10 MG TAB PO SCH (10:13)
[2016-04-06] MEDS: SENNOSIDES/DOCUSATE SODIUM TAB PO SCH (10:26)
--- NOTE | 2016-04-06 13:15 | GDS ---
[f rep st] DISCHARGE SUMMARY ALL DIAGNOSES: 1. Sepsis. 2. Pelvic abscess status post CT-guided drainage. 3. Vaginal hysterectomy for fibroids recently. 4. Possible urinary tract infection. 5. Acute blood loss anemia. 6. Diarrhea. 7. Hypertension. HOSPITAL COURSE: This is a 50-year-old female, who presented to the [facility] wi th malaise and chills. She had undergone a vaginal hysterectomy for removal of a fibroid uterus abou t 7 weeks ago. Imaging revealed a fluid collection in the pelvic region adjacent to the bladder, lik nadja abscess. She was treated with a percutaneous drainage of this by interventional radiology here. A drain was left in place until the day before discharge. CT scan the day before discharge revealed that the fluid collection had resolved. Aspirate fluid revealed a pansensitive Escherichia coli. S he was seen by Infectious Disease. Initially placed on IV Zosyn, transitioned IV Unasyn when Escheri son coli grew. DISCHARGE MEDICATIONS: On discharge, she will be transitioned to Levaquin, as well as Flagyl. Her s top date is 04/16/2016 for a total of 14 days postdrainage. FOLLOWUP: She has a followup appoint with Dr. Morataya of Infectious Disease on April 17 at 9:00 a .m. DISCHARGE CONDITION: On discharge, she appears well, does not feel quite back to normal, but feels t hat she is markedly improving. She is eating with minimal abdominal pain. BILLING: I spent more than 30 minutes on the day of discharge coordinating care. /[id number]/MODL
== END 2016-04-06 15:36 | disposition home or self-care (01) | DRG 872 ==
LOC: OBSVTOIN 04-01 00:01 → F3E 04-01 00:01
PROVIDERS: ADMIT Internal Medicine; ATTEND Student in an Organized Health Care Education/Training Program
PROC: 0W9J3ZZ Drainage of Pelvic Cavity, Percutaneous Approach (ICD-10-PCS; principal; 2016-04-02 13:18)
DX: A41.51 Sepsis due to Escherichia coli [E. coli] (principal); N73.8 Other specified female pelvic inflammatory diseases; N39.0 Urinary tract infection, site not specified; D62 Acute posthemorrhagic anemia; I10 Essential (primary) hypertension; K59.00 Constipation, unspecified
CPT/HCPCS: J0295; J1885; J1956; J2250; J2405; J2543; J2550; J3010; Q9967

== ENCOUNTER → 2016-04-30 | Outpatient (CLI) | payer OTHER ==
--- NOTE | 2016-04-30 17:02 | US ---
Ultrasound Pelvis Complete (Transabdominal and Endovaginal) Including Duplex/Doppler Imaging History: D72.819, hysterectomy 12 weeks ago. Pain and bloating. Comparison: CT April 05, 2016 Technique: Transabdominal and endovaginal ultrasound images were obtained. Endovaginal images obtain ed for better evaluation of the adnexa. Duplex/Doppler imaging of adnexa. Findings: Uterus is surgically absent. Right ovary measures 5.3 x 4.2 x 4.5 cm. Left ovary measures 3.2 x 3.4 x 2.5 cm. In the right ovary t here is a complex cyst with multiple septations, thicker central septation, total measurement of 4.7 x 3.8 x 3.3 cm. This appears similar to the CT from April 05, 2016. No significant free fluid in the pelvis. Color Doppler flow to both ovaries without torsion. Impression: 1. Prior hysterectomy. 2. Complex cyst in the right ovary measuring 4.7 x 3.8 x 3.3 cm, probably representing a hemorrhagic cyst, although follow-up ultrasound imaging in 6-12 weeks to ensure resolution is recommended 3. Normal left ovary. 4. No significant free fluid in the pelvis. 5. No ovarian torsion.
== END ==
LOC: BRMIMAGING 14:28
PROVIDERS: ATTEND Internal Medicine Infectious Disease
DX: N83.201 Unspecified ovarian cyst, right side (principal); D72.819 Decreased white blood cell count, unspecified; Z90.710 Acquired absence of both cervix and uterus
CPT/HCPCS: 76856-PO